=== PATIENT | male | born 1980 | race Caucasian/White ===

== ENCOUNTER 2018-06-28 08:33 | Emergency (ER) | payer SELFPAY ==
[2018-06-28 08:38] VITALS: TEMP 98; BMI 25.0
--- NOTE | 2018-06-28 09:00 | PDOC ---
History of Present Illness - General Chief Complaint: Asthma Stated Complaint: DIF BREATHING Time Seen by Provider: 06/28/18 08:58 Past History - Travel Traveled outside of the country in the last 30 days: No Close contact w/someone who was outside of country & ill: No - Past Medical History Allergies/Adverse Reactions: Allergies Allergy/AdvReac Type Severity Reaction Status Date / Time No Known Allergies Allergy Verified 06/28/18 08:34 Home Medications: Ambulatory Orders Albuterol Sulfate Inhaler - [Ventolin Hfa Inhaler -] 2 inh PO Q6H 10/30/15 Anemia: No Asthma: Yes (Pt is on MDI) Cancer: No Cardiac Disorders: No CVA: No COPD: No CHF: No Dementia: No Diabetes: No GI Disorders: No Disorders: No HTN: No Hypercholesterolemia: No Kidney Stones: No Liver Disease: No Seizures: No Thyroid Disease: No - Surgical History Orthopedic Surgery: Yes (R hand sx for fx) - Reproductive History Testicular Surgery: No - Immunization History Immunization Up to Date: No - Suicide/Smoking/Psychosocial Hx Smoking History: Current every day smoker Have you smoked in the past 12 months: Yes Number of Cigarettes Smoked Daily: 20 Cigars Per Day: 0 Information on smoking cessation initiated: No 'Breaking Loose' booklet given: 01/14/15 Hx Alcohol Use: Yes Drug/Substance Use Hx: Yes (HEROIN) Substance Use Type: Alcohol, Cocaine, Heroin, Marijuana Hx Substance Use Treatment: Yes *Physical Exam - Vital Signs Last Vital Signs Temp Pulse Resp BP Pulse Ox 98.0 F 96 H 18 131/69 96 06/28/18 08:36 06/28/18 08:36 06/28/18 08:36 06/28/18 08:36 06/28/18 08:36
--- NOTE | 2018-06-28 09:19 | PDOC ---
History of Present Illness - General Chief Complaint: Asthma Stated Complaint: DIF BREATHING Time Seen by Provider: 06/28/18 08:58 History Source: Patient Exam Limitations: No Limitations - History of Present Illness Initial Comments: 06/28/18 09:18 Mr Cárdenas is a 38 yo M who presents to the ER with a complaint of shortness of breath and chest tighthess Symptoms began this morning Pt denies fevers or chills Pt denies cough Pt is an active tobacco user and Heroin user PMH: Asthma, Polysubstance abuse PSH: Elbow surgery Meds: "Can not remember the name" ALL: NKDA Social: (+) Tobacco use - 1ppd, (+) Heroin use, (+) ETOH use Lives with friends FH: non contributory ROS: Somewhat limited as pt is so sleepy GENERAL/CONSTITUTIONAL: No: fever, chills HEAD, EYES, EARS, NOSE AND THROAT: No: ear pain, discharge, sore throat, throat swelling. CARDIOVASCULAR: Yes: chest tightness No: chest pain, lightheadedness RESPIRATORY: Yes: wheezing, shortness of breath No: cough, hemoptysis, stridor. GASTROINTESTINAL: No: nausea, vomiting, diarrhea, abdominal pain GENITOURINARY: No: dysuria, hematuria MUSCULOSKELETAL: No: back pain, neck pain SKIN: No: lesions, rash NEUROLOGIC: No: headache, weakness PE GENERAL: The patient is in no acute distress, pt is sleepy but arousable to verbal stimulation, answers questions appropriately, wearing neb mask on forehead HEAD: Normal with no signs of trauma. EYES: PERRLA, EOMI, sclera anicteric, conjunctiva clear. ENT: Moist mucous membranes. NECK: Normal range of motion, supple LUNGS: Expiratory wheezing, crackles left lung HEART:Regular rate and rhythm, normal S1 and S2 ABDOMEN: Soft, nontender, normoactive bowel sounds. No guarding, no rebound. EXTREMITIES: Normal range of motion, no edema. NEUROLOGICAL: Cranial nerves II through XII grossly intact. Normal speech. No focal neurological deficits. Pt sleepy but arousable MUSCULOSKELETAL: Back non-tender to palpation, no CVA tenderness SKIN: Warm, Dry, normal turgor, no rashes 06/28/18 10:00 Past History - Past Medical History Allergies/Adverse Reactions: Allergies Allergy/AdvReac Type Severity Reaction Status Date / Time No Known Allergies Allergy Verified 06/28/18 08:34 Home Medications: Ambulatory Orders Albuterol Sulfate Inhaler - [Ventolin HFA Inhaler -] 1 - 2 inh PO QID PRN #1 inhaler 06/28/18 Azithromycin [Zithromax 250mg Tablets -] 250 mg PO UTDICT #6 tab 06/28/18 predniSONE [Deltasone -] 60 mg PO DAILY #12 tablet 06/28/18 Anemia: No Asthma: Yes (Pt is on MDI) Cancer: No Cardiac Disorders: No CVA: No COPD: No CHF: No Dementia: No Diabetes: No GI Disorders: No Disorders: No HTN: No Hypercholesterolemia: No Kidney Stones: No Liver Disease: No Seizures: No Thyroid Disease: No - Surgical History Orthopedic Surgery: Yes (R hand sx for fx) - Reproductive History Testicular Surgery: No - Immunization History Immunization Up to Date: No - Suicide/Smoking/Psychosocial Hx Smoking History: Current every day smoker Have you smoked in the past 12 months: Yes Number of Cigarettes Smoked Daily: 20 Cigars Per Day: 0 Information on smoking cessation initiated: No 'Breaking Loose' booklet given: 01/14/15 Hx Alcohol Use: Yes Drug/Substance Use Hx: Yes (HEROIN) Substance Use Type: Alcohol, Cocaine, Heroin, Marijuana Hx Substance Use Treatment: Yes Review of Systems - Review of Systems Is the patient limited Green[place]ic proficient: No *Physical Exam - Vital Signs Last Vital Signs Temp Pulse Resp BP Pulse Ox 98.0 F 96 H 18 131/69 96 06/28/18 08:36 06/28/18 08:36 06/28/18 08:36 06/28/18 08:36 06/28/18 08:36 Medical Decision Making - Medical Decision Making 06/28/18 09:59 Pt presents with wheezing and shortness of breath that began today Likely asthma exacerbation Pt has a history of tobacco use, ? COPD Pt may also have pulmonary infection Will do: Nebs Prednisone CXR Re assess 06/28/18 11:24 CXR read as nml Pt is arousable Will plan to discharge to home *DC/Admit/Observation/Transfer Diagnosis at time of Disposition: Exacerbation of asthma - Discharge Dispostion Disposition: HOME Condition at time of disposition: Stable Decision to Admit order: No - Prescriptions Prescriptions: Albuterol Sulfate Inhaler - [Ventolin HFA Inhaler -] 1 - 2 inh PO QID PRN #1 inhaler PRN Reason: Wheezing Azithromycin [Zithromax 250mg Tablets -] 250 mg PO UTDICT #6 tab predniSONE [Deltasone -] 60 mg PO DAILY #12 tablet - Referrals - Patient Instructions Printed Discharge Instructions: Asthma -- Adult Additional Instructions: Mr. 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 Continue any medications as previously prescribed by your physician. You should follow up with your primary doctor as soon as possible regarding today's emergency department visit. . Please make sure your doctor reviews the results of your emergency evaluation. Thank you for coming to the Emergency Department today for your care. It was a pleasure to see you today. Please note that your evaluation is INCOMPLETE until you follow-up with your doctor. - Post Discharge Activity
[2018-06-28] MEDS ORDERED: ALBUTEROL SO4 2.5/IPRATROPIUM 0.5 INH SOL 3 ML VIAL.NEB. NEB ONE ×2 (09:27→09:40)
[2018-06-28] MEDS ORDERED: predniSONE 20 MG TABLET (UD) PO ONE (09:40)
[2018-06-28] MEDS ORDERED: predniSONE 20 MG TABLET (UD) ONE (10:00)
[2018-06-28 11:47] VITALS: BP 135/74; PULSE 87
== END 2018-06-28 11:46 | disposition home or self-care (01) ==
LOC: JER 08:33
PROC: 3E0F7GC Introduction of Other Therapeutic Substance into Respiratory Tract, Via Natural or Artificial Opening (ICD-10-PCS; principal; 2018-06-28)
DX: J45.41 Moderate persistent asthma with (acute) exacerbation (principal); F17.210 Nicotine dependence, cigarettes, uncomplicated; F11.90 Opioid use, unspecified, uncomplicated
CPT/HCPCS: 71045-TC-FY; 99283-25